=== PATIENT | male | born 1945 | race Caucasian/White ===

== ENCOUNTER 2017-02-20 10:36 | Emergency (ER) | payer MEDICARE ==
[~2017-02-20] VITALS: Ht 175.3 cm; Wt 67.7 kg
[~2017-02-20 10:36] MED LIST: ONDA1TAB16 PO; PERC5TAB12 PO; ZANTTAB9 PO
[2017-02-20 11:02] VITALS: BP 127/72; PULSE 64; RESP 16; TEMP 97.6; O2SAT 98
[2017-02-20] MEDS ORDERED: ZANT150T2 PO (12:23)
[2017-02-20 12:26] VITALS: BP 108/79; PULSE 78; RESP 20; O2SAT 97
[2017-02-20] MEDS ORDERED: SODIUM CHLORIDE 0.9% FLUSH 10 ML FLUSH IV FLUSH PRN (12:30)
[2017-02-20] MEDS ORDERED: ONDANSETRON HCL 4 MG/2 ML VIAL IVP ONE (12:30)
[2017-02-20] MEDS ORDERED: PANTOPRAZOLE SODIUM 40 MG VIAL IVP ONE (12:30)
--- NOTE | 2017-02-20 12:35 | PD ---
HPI Chief Complaint: General Weakness Time Seen by Provider: 12:23 Travel History International Travel<30 days: No Contact w/Intl Traveler<30days: No Traveled to known affect area: No History of Present Illness HPI 71yo M with gastric ulcer presents to the ED with c/o epigastric abdominal pain for a few days but worst this morning that it woke him up. It is burning and nonradiating. Feels like his ulcer but zantac is not working. Associated with nausea but no vomiting. Pt also with generalized weakness for a few days. Denies any fever, chest pain, sob, dysuria, hematuria, diarrhea. Last bowel movement was about 2 days ago. PFSH Past Medical History Arthritis: Yes Diminished Hearing: No GERD: Yes Immunizations Current: No Ulcer: Yes Past Surgical History Appendectomy: Yes Social History Alcohol Use: No Tobacco Use: Yes (03/24 PPD) Substance Use: No Allergies-Medications (Allergen,Severity, Reaction): Coded Allergies: aspirin (Unverified Allergy, Severe, Bleeding, 02/20/17) meperidine (Unverified Allergy, Severe, Twitching, 02/20/17) morphine (Unverified Allergy, Severe, Headache, 02/20/17) LIQUID FORM ONLY Reported Meds & Prescriptions Reported Meds & Active Scripts Active Omeprazole 40 Mg Cap 40 Mg PO DAILY Reported Zantac (Ranitidine HCl) 150 Mg Tab 150 Mg PO DAILY Review of Systems Except as stated in HPI: all other systems reviewed are Neg Physical Exam Narrative GENERAL: 71yo M not in distress. SKIN: Focused skin assessment warm/dry. HEAD: Atraumatic. Normocephalic. EYES: Pupils equal and round. No scleral icterus. No injection or drainage. ENT: No nasal bleeding or discharge. Mucous membranes pink and moist. NECK: Trachea midline. No JVD. CARDIOVASCULAR: Regular rate and rhythm. No murmur appreciated. RESPIRATORY: No accessory muscle use. Clear to auscultation. Breath sounds equal bilaterally. GASTROINTESTINAL: Abdomen soft, +TTP epigastric region. No rebound tenderness or guarding. MUSCULOSKELETAL: No obvious deformities. No clubbing. No cyanosis. No edema. NEUROLOGICAL: Awake and alert. No obvious cranial nerve deficits. Motor grossly within normal limits. Normal speech. PSYCHIATRIC: Appropriate mood and affect; insight and judgment normal. Data Data Last Documented VS Vital Signs Date Time Temp Pulse Resp B/P (MAP) Pulse Ox O2 Delivery O2 Flow Rate FiO2 02/20/17 14:44 74 18 118/78 (91) 98 Room Air 02/20/17 11:02 97.6 Orders Orders Complete Blood Count With Diff (02/20/17 12:30) Comprehensive Metabolic Panel (02/20/17 12:30) Lipase (02/20/17 12:30) Urinalysis - C+S If Indicated (02/20/17 12:30) Ct Abd/Pel W Iv Contrast(Rout) (02/20/17 12:30) Iv Access Insert/Monitor (02/20/17 12:30) Ecg Monitoring (02/20/17 12:30) Oximetry (02/20/17 12:30) Ondansetron Inj (Zofran Inj) (02/20/17 12:30) Pantoprazole Inj (Protonix Inj) (02/20/17 12:30) Sodium Chloride 0.9% Flush (Ns Flush) (02/20/17 12:30) Electrocardiogram (02/20/17 12:30) Troponin I (02/20/17 12:30) Magnesium (Mg) (02/20/17 12:30) Potassium Chloride (Kcl) (02/20/17 14:00) Iohexol 350 Inj (Omnipaque 350 Inj) (02/20/17 14:15) Sodium Chlor 0.9% 1000 Ml Inj (Ns 1000 M (02/20/17 14:45) Hydromorphone Pf Inj (Dilaudid Pf Inj) (02/20/17 15:00) Ed Discharge Order (02/20/17 16:49) Labs Laboratory Tests Test 02/20/17 13:25 02/20/17 15:06 White Blood Count 12.7 TH/MM3 Red Blood Count 5.26 MIL/MM3 Hemoglobin 15.0 GM/DL Hematocrit 47.0 % Mean Corpuscular Volume 89.5 FL Mean Corpuscular Hemoglobin 28.6 PG Mean Corpuscular Hemoglobin Concent 31.9 % Red Cell Distribution Width 13.3 % Platelet Count 236 TH/MM3 Mean Platelet Volume 8.5 FL Neutrophils (%) (Auto) 67.1 % Lymphocytes (%) (Auto) 17.8 % Monocytes (%) (Auto) 10.9 % Eosinophils (%) (Auto) 0.5 % Basophils (%) (Auto) 3.7 % Neutrophils # (Auto) 8.4 TH/MM3 Lymphocytes # (Auto) 2.3 TH/MM3 Monocytes # (Auto) 1.4 TH/MM3 Eosinophils # (Auto) 0.1 TH/MM3 Basophils # (Auto) 0.5 TH/MM3 CBC Comment DIFF FINAL Differential Comment Blood Urea Nitrogen 36 MG/DL Creatinine 1.50 MG/DL Random Glucose 105 MG/DL Total Protein 7.7 GM/DL Albumin 4.1 GM/DL Calcium Level 9.3 MG/DL Magnesium Level 2.2 MG/DL Alkaline Phosphatase 84 U/L Aspartate Amino Transf (AST/SGOT) 24 U/L Alanine Aminotransferase (ALT/SGPT) 35 U/L Total Bilirubin 1.8 MG/DL Sodium Level 126 MEQ/L Potassium Level 3.1 MEQ/L Chloride Level 86 MEQ/L Carbon Dioxide Level 29.9 MEQ/L Anion Gap 10 MEQ/L Estimat Glomerular Filtration Rate 46 ML/MIN Troponin I LESS THAN 0.02 NG/ML Lipase 127 U/L Urine Collection Type CLEAN CATCH Urine Color YELLOW Urine Turbidity CLEAR Urine pH 5.5 Urine Specific Ensign 1.032 Urine Protein NEG mg/dL Urine Glucose (UA) NEG mg/dL Urine Ketones TRACE mg/dL Urine Occult Blood NEG Urine Nitrite NEG Urine Bilirubin NEG Urine Leukocyte Esterase NEG Urine RBC 0-3 /hpf Urine WBC 0-2 /hpf Urine Squamous Epithelial Cells 0-5 /hpf Microscopic Urinalysis Comment CULT NOT INDICATED Urine Collection Time 15:06 [facility] Medical Decision Making Medical Screen Exam Complete: Yes Emergency Medical Condition: Yes Interpretation(s) EKG: NSR 73bpm. LAD. Q waves V1, V2, II, III, aVF. No ST segment elevation or depression. Differential Diagnosis GERD vs. PUD vs. pancreatitis vs. atypical ACS vs. obstruction vs. colitis Narrative Course 71yo M with gastric ulcer here with epigastric abdominal pain for a few days. Pain is worst today. Labs reviewed, mild leukocytosis at 12.7. Hyponatremic at 126. Hypokalemic at 3.1, replaced orally. BUN/creatinine is elevated at 36/ 1.50, likely dehydration. Pt given NS IVF. Total bilirubin is elevated at 1.8. LFTs normal. Troponin negative. Lipase is normal. CT a/p showed no acute dilation of biliary tree. No calcified gallstones. Nonobstructing right renal stone. 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 pt has no signs of right buttock or lower extremity claudication. DP 2+. No leg pain and warm to touch. Pt given zofran and pantoprazole but pain is still there. Pt is not nauseous and tolerating PO. Said allergic to morphine but can take dialudid only and pain is now relieve with 0.5mg of dilaudid IV. Pt reevaluated after dialudid and pain has resolved. Abdomen is now soft, NT/ND. I discussed with GI physician production assistant and he said that bilirubin can be elevated from dehydration and pt can follow up with him next week. Pt wants to go home and given NS IVF and tolerating PO now. Encourage oral hydration. Return precautions given. Diagnosis Primary Impression: Dehydration Referrals: Ganesh Morgan MD call for appointment Patient Instructions: General Instructions Departure Forms: Tests/Procedures Additional Instructions: Please follow up with Dr. Gonzalez in next available appointment. Return to the ED if symptoms worsen. Med/Other Pt SpecificInfo: Prescription(s) given Scripts Omeprazole (Omeprazole) 40 Mg Cap 40 MG PO DAILY, #15 CAP 0 Refills Prov: Mica Quintanilla DO 02/20/17 Disposition: 01 DISCHARGE HOME Condition: Stable Mica Quintanilla DO Feb 20, 2017 12:35
[2017-02-20 13:30] LABS: AUTOMATED NEUTROPHIL # 8.4 TH/MM3 (1.8-7.7); BASOPHIL # 0.5 TH/MM3 (0-0.2); BASOPHIL % 3.7 % (0.0-2.0); EOSINOPHIL # 0.1 TH/MM3 (0-0.4); EOSINOPHIL % 0.5 % (0.0-4.0); HEMO FLAGS DIFF FINAL; LYMPH % 17.8 % (9.0-44.0); LYMPHOCYTE # 2.3 TH/MM3 (1.0-4.8); MEAN CELL VOLUME 89.5 FL (80.0-100.0); MEAN CORPUSCULAR HEMOGLOBIN 28.6 PG (27.0-34.0); MEAN CORPUSCULAR HGB CONC 31.9 % (32.0-36.0); MONO % 10.9 % (0.0-8.0); NEUT % 67.1 % (16.0-70.0); PLATELET COUNT 236 TH/MM3 (150-450); RED BLOOD COUNT 5.26 MIL/MM3 (4.50-5.90); RED CELL DISTRIBUTION WIDTH 13.3 % (11.6-17.2); WHITE BLOOD COUNT 12.7 TH/MM3 (4.0-11.0)
[2017-02-20 13:45] VITALS: O2SAT 96
[2017-02-20 13:46] LABS: CHLORIDE 86 MEQ/L (98-107); POTASSIUM 3.1 MEQ/L (3.5-5.1); SODIUM (NA) 126 MEQ/L (136-145)
[2017-02-20 13:50] LABS: ANION GAP 10 MEQ/L (5-15); BICARBONATE 29.9 MEQ/L (21.0-32.0); BLOOD UREA NITROGEN 36 MG/DL (7-18); MAGNESIUM 2.2 MG/DL (1.5-2.5)
[2017-02-20 13:53] LABS: ALT (GPT) 35 U/L (12-78); AST (GOT) 24 U/L (15-37); GLOMERULAR FILTRATION RATE 46 ML/MIN (>89)
[2017-02-20 13:54] LABS: TOTAL BILIRUBIN ADULT 1.8 MG/DL (0.2-1.0)
[2017-02-20 13:56] LABS: ALKALINE PHOSPHATASE 84 U/L (45-117)
[2017-02-20] MEDS ORDERED: POTASSIUM CHLORIDE 20 MEQ CONTROLLED RELEASE TAB PO ONE (14:00)
[2017-02-20] MEDS ORDERED: IOHEXOL 350 MG/ML 10 ML VIAL (for RAD DIAG) IVCONTRAST ONE (14:15)
[2017-02-20 14:44] VITALS: BP 118/78; PULSE 74; RESP 18; O2SAT 98
[2017-02-20] MEDS ORDERED: SODIUM CHLOR 0.9% 1000 ML INJ 1,000 ML IV ONE (14:45)
[2017-02-20] MEDS ORDERED: HYDROmorphone HCL PF 1 MG/ML VIAL IV PUSH ONE (15:00)
--- NOTE | 2017-02-20 15:03 | RADRPT ---
EXAM DATE/TIME: 02/20/2017 14:05 [facility] COMPARISON: CT ABDOMEN & PELVIS W CONTRAST, April 17, 2014, 14:53. INDICATIONS : General weakness. Epigastric pain and nausea x 5 days. Constipation x 2 days. IV CONTRAST: 70 cc Omnipaque 350 (iohexol) IV ORAL CONTRAST: No oral contrast ingested. RADIATION DOSE: 7.87 CTDIvol (mGy) MEDICAL HISTORY : Gastroesophageal reflux disease. Gastric ulcer. SURGICAL HISTORY : Appendectomy. ENCOUNTER: Initial ACUITY: 4 - 6 days PAIN SCALE: 7/10 LOCATION: Epigastric. TECHNIQUE: Volumetric scanning of the abdomen and pelvis was performed. Using automated exposure control and ad justment of the mA and/or kV according to patient size, radiation dose was kept as low as reasonably achievable to obtain optimal diagnostic quality images. DICOM format image data is available electro nically for review and comparison. FINDINGS: LOWER LUNGS: The visualized lower lungs are clear. LIVER: Homogeneous density without lesion. There is no dilation of the biliary tree. No calcified gallston es. SPLEEN: Normal size. A tiny cyst measuring partially 5 mm seen laterally. PANCREAS: Within normal limits. KIDNEYS: Normal in size and shape. There is no mass or hydronephrosis. 3 mm nonobstructing right renal stone . ADRENAL GLANDS: A 1.5 cm low-density nodule is again seen involving the medial limb of the right adrenal gland. The l eft adrenal gland shows diffuse thickening. Both are unchanged from the prior study. VASCULAR: Diffuse calcified atherosclerotic plaque without aneurysmal change. 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 BOWEL/MESENTERY: The stomach, small bowel, and colon demonstrate no acute abnormality. There is no free intraperitone al air or fluid. ABDOMINAL WALL: Within normal limits. RETROPERITONEUM: There is no lymphadenopathy. BLADDER: No wall thickening or mass. REPRODUCTIVE: Within normal limits. INGUINAL: Left inguinal hernia containing fat. MUSCULOSKELETAL: A right hip prosthesis. CONCLUSION: 1. No acute mality. 2. Nonobstructing right renal stone. 3. 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 Evaluation for any signs of right buttock or lower extremity claudication suggested. Royer Galicia Jr., MD on February 20, 2017 at 14:48 Board Certified Radiologist. This report was verified electronically.
[2017-02-20 15:15] LABS: BLOOD, URINE NEG (NEG); GLUCOSE,URINE NEG (NEG); KETONE, URINE TRACE mg/dL (NEG); NITRITE,URINE NEG (NEG); PH, URINE 5.5 (5.0-8.5)
[2017-02-20 15:22] LABS: METHOD OF COLLECTION CLEAN CATCH
[2017-02-20 15:23] LABS: COMMENT (UR) CULT NOT INDICATED; CULTURE IF INDICATED CULT NOT INDICATED; RBC, URINE 0-3 /hpf (0-3); SQUAMOUS EPITHELIAL CELL URINE 0-5 /hpf (0-5); URINE COLOR YELLOW (YELLW/STRAW); WBC, URINE 0-2 /hpf (0-5)
[2017-02-20] MEDS ORDERED: OMEP40CA2 PO (16:49)
[2017-02-20 17:02] VITALS: BP 111/67
--- NOTE | 2017-02-22 23:40 | EKG ---
Date Performed: 02/20/2017 Time Performed: 12:37:13 PTAGE: 71 years EKG: Sinus rhythm MARKED LEFT AXIS DEVIATION ANTEROSEPTAL MYOCARDIAL INFARCTION ABNORMAL ECG PREVIOUS TRACING : 10/01/2011 23.28 Compared to prior tracing no significant change DOCTOR: Brent Delacruz Interpretating Date/Time 02/22/2017 23:39:11
== END 2017-02-20 17:08 | disposition home or self-care (01) ==
LOC: PHED 10:36
DX: E86.0 Dehydration (principal); D72.829 Elevated white blood cell count, unspecified; E87.1 Hypo-osmolality and hyponatremia; E87.6 Hypokalemia; R10.13 Epigastric pain; R11.0 Nausea; R53.1 Weakness; R94.31 Abnormal electrocardiogram [ECG] [EKG]; F17.200 Nicotine dependence, unspecified, uncomplicated; Z87.39 Personal history of other diseases of the musculoskeletal system and connective tissue; Z87.19 Personal history of other diseases of the digestive system
CPT/HCPCS: 74177; 80053; 81001; 83690; 83735; 84484; 85025; 93005; 96361; 96374; 96375; 99285; C9113; J1170; J2405; J7030; Q9967

== ENCOUNTER 2017-04-13 04:13 | Inpatient (IN) | payer MEDICARE ==
[2017-04-13] MEDS: SODIUM CHLOR 0.9% 1000 ML INJ 1,000 ML IV ×2 (04:51→07:06)
[2017-04-13] MEDS ORDERED: SODIUM CHLORIDE 0.9% FLUSH 10 ML FLUSH IV FLUSH ×2 (05:00→06:30)
[2017-04-13] MEDS: HYDROmorphone HCL PF 1 MG/ML VIAL IV PUSH (05:27)
[2017-04-13] MEDS: DEXAMETHASONE SOD PHOS 4 MG/ML VIAL IV PUSH (05:28)
[2017-04-13] MEDS: ONDANSETRON HCL 4 MG/2 ML VIAL IVP (05:28)
[2017-04-13 05:53] LABS: AUTOMATED NEUTROPHIL # 7.5 TH/MM3 (1.8-7.7); BASOPHIL # 0.1 TH/MM3 (0-0.2); BASOPHIL % 0.6 % (0.0-2.0); EOSINOPHIL # 0.1 TH/MM3 (0-0.4); EOSINOPHIL % 1.1 % (0.0-4.0); HEMATOCRIT 43.9 % (39.0-51.0); HEMO FLAGS DIFF FINAL; HEMOGLOBIN 13.9 GM/DL (13.0-17.0); LYMPH % 13.7 % (9.0-44.0); LYMPHOCYTE # 1.4 TH/MM3 (1.0-4.8); MEAN CELL VOLUME 87.9 FL (80.0-100.0); MEAN CORPUSCULAR HEMOGLOBIN 27.8 PG (27.0-34.0); MEAN CORPUSCULAR HGB CONC 31.6 % (32.0-36.0); MEAN PLATELET VOLUME 8.9 FL (7.0-11.0); MONO % 8.1 % (0.0-8.0); MONOCYTE # 0.8 TH/MM3 (0-0.9); NEUT % 76.5 % (16.0-70.0); PLATELET COUNT 210 TH/MM3 (150-450); RED BLOOD COUNT 4.99 MIL/MM3 (4.50-5.90); RED CELL DISTRIBUTION WIDTH 13.3 % (11.6-17.2); WHITE BLOOD COUNT 9.9 TH/MM3 (4.0-11.0)
[2017-04-13 06:01] LABS: CHLORIDE 94 MEQ/L (98-107); SODIUM (NA) 135 MEQ/L (136-145)
[2017-04-13 06:04] LABS: ANION GAP 7 MEQ/L (5-15); BICARBONATE 33.8 MEQ/L (21.0-32.0); BLOOD UREA NITROGEN 13 MG/DL (7-18); CALCIUM 9.4 MG/DL (8.5-10.1); GLUCOSE,RANDOM 133 MG/DL (74-106); LIPASE 64 U/L (73-393)
[2017-04-13 06:07] LABS: GLOMERULAR FILTRATION RATE 73 ML/MIN (>89)
[2017-04-13] MEDS: SODIUM CHLORID 0.9% 500 ML INJ 500 ML IV (06:30)
[2017-04-13 06:42] LABS: TROPONIN I LESS THAN 0.02 NG/ML (0.02-0.05)
[2017-04-13] MEDS ORDERED: DILTIAZEM INJ 125 MG in SODIUM CHLORIDE 0.9% INJ 100 ML IV (07:00)
[2017-04-13] MEDS: DILTIAZEM HCL 25 MG/5 ML VIAL IV ×2 (07:00)
[2017-04-13] MEDS: POTASSIUM CHLORIDE 20 MEQ CONTROLLED RELEASE TAB PO ×2 (07:06→20:14)
[2017-04-13] MEDS: ONDANSETRON HCL 4 MG/2 ML VIAL IV PUSH (07:06)
[2017-04-13] MEDS: IOHEXOL 350 MG/ML 10 ML VIAL (for RAD DIAG) IVCONTRAST (07:06)
[2017-04-13] MEDS ORDERED: DILTIAZEM HCL 50 MG/10 ML VIAL IV PUSH (07:15)
[2017-04-13] MEDS: POTASSIUM CHLORIDE 25 MEQ EFFERVESCENT TAB PO (08:09)
[2017-04-13] MEDS: METOPROLOL TARTRATE 25 MG TAB PO ×3 (08:09→20:15)
[2017-04-13 08:49] LABS: CREATINE KINASE 62 U/L (39-308)
[2017-04-13 09:04] LABS: BILIRUBIN, URINE NEG (NEG); BLOOD, URINE NEG (NEG); GLUCOSE,URINE NEG (NEG); KETONE, URINE TRACE mg/dL (NEG); NITRITE,URINE NEG (NEG); PH, URINE 5.5 (5.0-8.5); URINE LEUKOCYTE ESTERASE NEG (NEG)
[2017-04-13 09:13] LABS: METHOD OF COLLECTION CLEAN CATCH
[2017-04-13 09:13] LABS: URINE COLOR YELLOW (YELLW/STRAW)
[2017-04-13 09:14] LABS: COMMENT (UR) CULT NOT INDICATED; CULTURE IF INDICATED CULT NOT INDICATED; MUCUS URINE FEW /lpf (OCC); WBC, URINE 0-2 /hpf (0-5)
[2017-04-13] MEDS ORDERED: PILL SPLITTER OTHER (10:45)
[2017-04-13 11:03] LABS: ALBUMIN 3.9 GM/DL (3.4-5.0)
[2017-04-13 11:05] LABS: DIRECT BILIRUBIN ADULT 0.1 MG/DL (0.0-0.2)
[2017-04-13 11:06] LABS: ALT (GPT) 21 U/L (12-78); AST (GOT) 21 U/L (15-37)
[2017-04-13 11:07] LABS: INDIRECT BILIRUBIN 0.9 MG/DL (0.0-0.8); TOTAL PROTEIN 7.4 GM/DL (6.4-8.2)
[2017-04-13 11:09] LABS: ALKALINE PHOSPHATASE 83 U/L (45-117)
[2017-04-13] MEDS: DOXYCYCLINE HYCLATE 100 MG TAB PO ×2 (11:50→20:14)
[2017-04-13] MEDS: ACETAMINOPHEN/HYDROcodone 325 MG/7.5 MG TAB PO (11:51)
[2017-04-13] MEDS: FAMOTIDINE 20 MG TAB PO (11:51)
[2017-04-13] MEDS: ONDANSETRON ODT 4 MG TAB PO (11:53)
[2017-04-13] MEDS: PANTOPRAZOLE SOD 40 MG DELAYED RELEASE TAB PO (11:55)
[2017-04-13] MEDS: ACETAMINOPHEN 500 MG CPLT PO (15:29)
[2017-04-13] MEDS: RESP: ALBUTEROL 2.5 MG/IPRATROPIUM 0.5 MG NEB (PRN) NEB (18:03)
[2017-04-13] MEDS: RESP: ACETYLCYSTEINE 10% 10 ML NEB NEB (18:04)
[2017-04-13] MEDS: ATORVASTATIN 40 MG TAB PO (20:15)
[2017-04-13] MEDS ORDERED: ACETAMINOPHEN/HYDROcodone 325 MG/7.5 MG TAB PO (21:00)
[2017-04-13] MEDS: traZODone HCL 50 MG TAB PO (21:08)
[2017-04-14] MEDS: ACETAMINOPHEN 500 MG CPLT PO (06:30)
[2017-04-14] MEDS: RESP: ALBUTEROL 2.5 MG/IPRATROPIUM 0.5 MG NEB (PRN) NEB (07:45)
[2017-04-14] MEDS: RESP: ACETYLCYSTEINE 10% 10 ML NEB NEB (07:45)
[2017-04-14] MEDS: DOXYCYCLINE HYCLATE 100 MG TAB PO ×2 (08:29→21:40)
[2017-04-14] MEDS: ONDANSETRON ODT 4 MG TAB PO ×2 (08:29→12:00)
[2017-04-14] MEDS: PANTOPRAZOLE SOD 40 MG DELAYED RELEASE TAB PO (08:29)
[2017-04-14] MEDS: FAMOTIDINE 20 MG TAB PO (08:29)
[2017-04-14] MEDS: METOPROLOL TARTRATE 25 MG TAB PO ×2 (08:30→21:00)
[2017-04-14] MEDS: PROMETHAZINE INJ 25 MG/ML VIAL IM (10:17)
[2017-04-14 12:02] LABS: CHLORIDE 100 MEQ/L (98-107); POTASSIUM 3.5 MEQ/L (3.5-5.1); SODIUM (NA) 137 MEQ/L (136-145)
[2017-04-14 12:14] LABS: ANION GAP 6 MEQ/L (5-15); BICARBONATE 30.9 MEQ/L (21.0-32.0); BLOOD UREA NITROGEN 9 MG/DL (7-18); CALCIUM 8.4 MG/DL (8.5-10.1); GLOMERULAR FILTRATION RATE 95 ML/MIN (>89); GLUCOSE,RANDOM 107 MG/DL (74-106)
[2017-04-14] MEDS ORDERED: Vancomycin Consult Pharmacy 1 EA OTHER ×2 (16:45→17:00)
[2017-04-14] MEDS: VANCOMYCIN 1,000 MG/NS 250 ML IV (17:00)
[2017-04-14] MEDS: LEVOFLOXACIN 750 MG PREMIX INJ 150 ML IV ×2 (17:28→18:40)
[2017-04-14] MEDS: LIDOCAINE VISCOUS 2% SOLN 15 ML UDC SWISH-SWAL (17:28)
[2017-04-14] MEDS: ENOXAPARIN SODIUM 30 MG/0.3 ML SYRINGE SQ (18:02)
[2017-04-14 20:38] LABS: D-DIMER 0.72 MG/L FEU (0.00-0.50)
[2017-04-14] MEDS: ATORVASTATIN 40 MG TAB PO (21:40)
[2017-04-14] MEDS: traZODone HCL 50 MG TAB PO (21:40)
[2017-04-14] MEDS: HEPARIN SODIUM - SQ 10,000 UNITS/ML VIAL SQ (21:41)
[2017-04-14] MEDS: MELATONIN 5 MG TAB PO (21:41)
[2017-04-14] MEDS: SODIUM CHLORIDE 0.9% FLUSH 10 ML FLUSH IV FLUSH (21:41)
[2017-04-14] MEDS: methylPREDNISolone SOD SUCC 125 MG/2 ML VIAL IV PUSH (21:41)
[2017-04-14] MEDS: ACETAMINOPHEN/HYDROcodone 325 MG/5 MG TAB PO (23:47)
[2017-04-15] MEDS: methylPREDNISolone SOD SUCC 125 MG/2 ML VIAL IV PUSH ×2 (04:38→12:14)
[2017-04-15] MEDS: VANCOMYCIN INJ 1,250 MG in SODIUM CHLOR 0.9% 250 ML INJ 250 ML IV (05:30)
[2017-04-15 06:59] LABS: CREATININE 0.87 MG/DL (0.60-1.30); GLOMERULAR FILTRATION RATE 86 ML/MIN (>89)
[2017-04-15 08:05] LABS: PROCALCITONIN 0.05 ng/mL (0.00-0.08)
[2017-04-15] MEDS: FAMOTIDINE 20 MG TAB PO (09:37)
[2017-04-15] MEDS: METOPROLOL TARTRATE 25 MG TAB PO (09:37)
[2017-04-15] MEDS: PANTOPRAZOLE SOD 40 MG DELAYED RELEASE TAB PO (09:38)
[2017-04-15] MEDS: DOXYCYCLINE HYCLATE 100 MG TAB PO (09:38)
[2017-04-15] MEDS: HEPARIN SODIUM - SQ 10,000 UNITS/ML VIAL SQ (09:39)
[2017-04-15] MEDS ORDERED: LEVOFLOXACIN 750 MG PREMIX INJ 150 ML IV (17:00)
[2017-04-16] MEDS ORDERED: PHARMACY ORDERED LAB (05:45)
== END 2017-04-15 15:44 | disposition home or self-care (01) | DRG 308 ==
LOC: PHED 04:13 → PHEDA 07:32 → PH3A 09:15
DX: I48.91 Unspecified atrial fibrillation (principal); J96.01 Acute respiratory failure with hypoxia; I95.9 Hypotension, unspecified; J44.0 Chronic obstructive pulmonary disease with (acute) lower respiratory infection; J44.1 Chronic obstructive pulmonary disease with (acute) exacerbation; E87.6 Hypokalemia; R11.2 Nausea with vomiting, unspecified; Z96.641 Presence of right artificial hip joint; F17.210 Nicotine dependence, cigarettes, uncomplicated; I73.9 Peripheral vascular disease, unspecified; J20.9 Acute bronchitis, unspecified; K21.9 Gastro-esophageal reflux disease without esophagitis; Z96.659 Presence of unspecified artificial knee joint; M19.90 Unspecified osteoarthritis, unspecified site; M54.5 Low back pain; Z87.11 Personal history of peptic ulcer disease
CPT/HCPCS: 71046; 71275; 74174; 76705; 80048; 80076; 81001; 82550; 82565; 83690; 83735; 84145; 84484; 85025; 85379; 86850; 86900; 86901; 87205; 87449; 87804; 87804-59; 93005; 94640; 94664; 96361; 96374; 96375; 96376; 97162-GP; 99285-25